=== PATIENT | male | born 1995 | race Caucasian/White ===

== ENCOUNTER 2017-03-30 14:24 | Emergency (ER) | payer OTHER ==
[~2017-03-30 14:24] MED LIST: PROM25TA5 PO
[2017-03-30 16:38] VITALS: BP 120/73; PULSE 64; RESP 18; TEMP 99.3; O2SAT 100
--- NOTE | 2017-03-30 17:05 | PD ---
HPI Chief Complaint: Psychiatric Symptoms Time Seen by Provider: 16:31 Travel History International Travel<30 days: No Contact w/Intl Traveler<30days: No History of Present Illness HPI The patient is 22 years old. He arrives as a dinh act. He asked that his friend and said that he feels he "could not do this anymore" however stated he had no intention of hurting himself. The police were notified and he was then Dinh acted. Location neuropsychiatric. Severity moderate. PFSH Past Medical History ADHD: Yes Asthma: Yes (as a young child but no longer) Autoimmune Disease: No Anxiety: No Depression: No Cancer: No Cardiovascular Problems: No Diabetes: No Diminished Hearing: No Gastrointestinal Disorders: No Genitourinary: No Headaches: Yes (over 6-7 months has had headaches) Musculoskeletal: No Neurologic: No Psychiatric: No Respiratory: No Immunizations Current: Yes Migraines: No Seizures: Yes (FROM USING K-2 ) Thyroid Disease: No Past Surgical History Surgical History: No Previous Surgery Cardiac Surgery: Yes (HT VALVE SURGERY AT AGE 5YRS) Other Surgery: Yes Social History Alcohol Use: Yes (OCCASIONAL) Tobacco Use: Yes (1 PPD) Substance Use: Yes (pot, K2) Allergies-Medications (Allergen,Severity, Reaction): Coded Allergies: No Known Allergies (Verified , 02/22/15) Reported Meds & Prescriptions Reported Meds & Active Scripts Active Phenergan (Promethazine HCl) 25 Mg Tab 25 Mg PO Q6 PRN Review of Systems Except as stated in HPI: all other systems reviewed are Neg Physical Exam Narrative GENERAL: Well-nourished well-developed 22-year-old male no acute distress SKIN: Warm and dry. HEAD: Atraumatic. Normocephalic. EYES: Pupils equal and round. No scleral icterus. No injection or drainage. ENT: No nasal bleeding or discharge. Mucous membranes pink and moist. NECK: Trachea midline. No JVD. CARDIOVASCULAR: Regular rate and rhythm. RESPIRATORY: No accessory muscle use. Clear to auscultation. Breath sounds equal bilaterally. GASTROINTESTINAL: Abdomen soft, non-tender, nondistended. Hepatic and splenic margins not palpable. MUSCULOSKELETAL: Extremities without clubbing, cyanosis, or edema. No obvious deformities. NEUROLOGICAL: Awake and alert. No obvious cranial nerve deficits. Motor grossly within normal limits. Five out of 5 muscle strength in the arms and legs. Normal speech. PSYCHIATRIC: Appropriate mood and affect; insight and judgment normal. Data Data Last Documented VS Vital Signs Date Time Temp Pulse Resp B/P (MAP) Pulse Ox O2 Delivery O2 Flow Rate FiO2 03/30/17 16:38 99.3 64 18 120/73 (89) 100 Vital signs reviewed MDM Medical Decision Making Medical Screen Exam Complete: Yes Emergency Medical Condition: Yes Medical Record Reviewed: Yes Differential Diagnosis Altered mental status/psychosis due to infection/environmental exposure/ metabolic abnormality, polypharmacy, alcohol abuse/intoxication, illicit or prescribed drug abuse, malingering/secondary gain, non-organic psychiatric disease Narrative Course Dinh Act lifted by the undersigned. Since the patient is not suicidal or homicidal there is no reason to Dinh act him. Diagnosis Primary Impression: Suicidal ideation Med/Other Pt SpecificInfo: No Change to Meds Disposition: 01 DISCHARGE HOME Condition: Stable Leon Pandey MD Mar 30, 2017 17:05
== END 2017-03-30 17:29 | disposition home or self-care (01) ==
LOC: NEDAMB 14:24 → NEPD 17:29
DX: R45.851 Suicidal ideations (principal)
CPT/HCPCS: 99281